=== PATIENT | male | born 1985 | race Caucasian/White ===

== ENCOUNTER 2020-04-21 15:01 | Emergency (ER) | payer OTHER, SELFPAY ==
[2020-04-21 15:13] VITALS: BP 120/85; PULSE 87; RESP 16; TEMP 37.1; O2SAT 100
--- NOTE | 2020-04-21 15:22 | ED.BACK ---
HPI - Back Pain/Injury General Chief Complaint: Back Pain/Injury Stated Complaint: Back pain Time Seen by Provider: 04/21/20 15:20 Source: patient and RN notes reviewed History of Present Illness HPI Narrative: Patient is a 35-year-old male who presents the urgent care with complaints of right-sided low back pain. Patient states that yesterday he was outside lifting a bunch of tree limbs. Patient states it started hurting last night and he was using an ice pack for comfort. States that this morning he has had increased pain with difficulty bending. 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 Patient has not taken anything [id number] for his pain. Denies of any fall or known injury. No other acute complaints. No acute distress noted. Patient read the plan of care. Related Data Allergies Allergy/AdvReac Type Severity Reaction Status Date / Time No Known Drug Allergies Allergy Unknown none Verified 04/21/20 15:20 Review of Systems Review of Systems: Narrative: CONSTITUTIONAL: Denies fever, chills, or sweats. EYES: Denies visual changes, redness, or discharge. ENT: Denies rhinorrhea, congestion, sore throat, or otalgia. CARDIOVASCULAR: Denies chest pain, palpitations, or edema. RESPIRATORY: Denies cough or dyspnea. GASTROINTESTINAL: Denies abdominal pain, nausea, vomiting, or diarrhea. GENITOURINARY: Denies dysuria or hematuria. SKIN: Denies rash or itching. MUSCULOSKELETAL: Reports of right sided low back pain NEUROLOGIC: Denies headache, numbness, or weakness. All other systems reviewed are negative, except as documented in HPI. PMFSH Comments At the time of my signature, I reviewed and agree with the nursing past medical, surgical, social, and family history. There is no relevant family history pertinent to the patient complaint. Exam Narrative: Exam Narrative: GENERAL: This is a well-nourished, well-developed patient, in no apparent distress. HEAD: normocephalic, atraumatic. EYES: PERRL. Sclera clear/white. Vision is grossly intact. EARS: External ears normal NOSE: External nose normal with no obvious nasal discharge, nares without redness, no rhinorrhea. THROAT: Mucous membranes moist NECK: Neck supple SKIN: warm, intact with no suspicious lesions or rash, good texture and turgor. NEURO: awake, alert, and oriented to person, place and time. There were no obvious focal neurologic abnormalities. EXTREMITIES: No clubbing, cyanosis, or edema. BACK: Mild right lumbar tenderness without any crepitus, positive right SLE Course Vital Signs Vital signs: Vital Signs Temperature 98.7 F 04/21/20 15:13 Pulse Rate 87 04/21/20 15:13 Respiratory Rate 16 04/21/20 15:13 Blood Pressure 120/85 04/21/20 15:13 Pulse Oximetry 100 04/21/20 15:13 Temperature 98.7 F 04/21/20 15:13 Pulse Rate 87 04/21/20 15:13 Respiratory Rate 16 04/21/20 15:13 Blood Pressure 120/85 04/21/20 15:13 Pulse Oximetry 100 04/21/20 15:13 Reviewed MDM - Back Pain/Injury MDM Narrative Medical decision making narrative: Advised the patient to complete steroid regimen as prescribed. Avoid any heavy lifting, especially above the head. Refrain from any strenuous activity until tolerated as normal. Use ibuprofen as needed for pain. Use muscle relaxer prior to bedtime. Do not drive or operate heavy machinery while on the muscle relaxer, due to drowsiness. May use ice or heat for 20-minute intervals as needed for comfort. We will not give release notes for work and we are unable to put you on any type of light duty. Therefore, speak to your workplace regarding the type of work that you were required to do. Follow-up with your PCP within 2 to 5 days or for worsening symptoms or failure to improve. Differential Diagnosis Differential diagnosis: Likely lumbar radiculopathy, sciatica and thoracic back pain Critical Care Time Critical Care Time Critical Care Time: No Discharge Plan D
== END 2020-04-21 15:30 | disposition home or self-care (01) ==
PROVIDERS: Emergency Provider Nurse Practitioner Family
DX: S39.012A Strain of muscle, fascia and tendon of lower back, initial encounter (principal); X50.3XXA Overexertion from repetitive movements, initial encounter
CPT/HCPCS: 99213; G0463